=== PATIENT | female | born 1955 | race Caucasian/White ===

== ENCOUNTER → 2018-10-29 | Emergency (ER) | payer OTHER ==
[~2018-10-29] VITALS: Ht 160 cm; Wt 58.5 kg
[~2018-10-29] MED LIST: COZAAR25 MG; PROBIOTIC1 EAC3; SYNTHROID50 MCG; ZOLOFT50 MG
== END | disposition home or self-care (01) ==
LOC: ER 22:13
DX: R55 Syncope and collapse (principal)